=== PATIENT | female | born 1995 | race African-American/Black ===

== ENCOUNTER 2021-01-31 09:56 | Emergency (ER) | payer MEDICAID ==
[~2021-01-31] VITALS: Ht 157.5 cm; Wt 47.0 kg
[2021-01-31 10:41] LABS: CLARITY URINE CLOUDY (CLEAR); COLOR URINE YELLOW (YELLOW); KETONES URINE TRACE (NEGATIVE); LEUKOCYTE ESTERASE URINE NEGATIVE (NEGATIVE); NITRITE URINE NEGATIVE (NEGATIVE); OCCULT BLOOD URINE 2+ (NEGATIVE); PROTEIN URINE TRACE (NEGATIVE); SPECIFIC GRAVITY URINE 1.023 (1.005-1.030); UROBILINOGEN URINE 0.2 E.U./dL (0.2-1.0)
[2021-01-31 11:19] VITALS: BP 104/65
== END 2021-01-31 11:20 | disposition home or self-care (01) ==
LOC: ER 09:56
DX: T19.2XXA Foreign body in vulva and vagina, initial encounter (principal); X58.XXXA Exposure to other specified factors, initial encounter
CPT/HCPCS: 81003; 81025; 99283; Z7610